=== PATIENT | female | born 1970 | race Caucasian/White ===

== ENCOUNTER 2024-06-03 15:26 | Emergency (ER) | payer SELFPAY ==
[~2024-06-03] VITALS: Ht 162.6 cm; Wt 72.0 kg
[2024-06-03 15:37] VITALS: TEMP 98.7; O2SAT 99
[2024-06-03 17:28] LABS: COLOR URINE BLOODY (YELLOW); SPECIFIC GRAVITY URINE 1.015 (1.005-1.030)
[2024-06-03 17:29] LABS: GLUCOSE URINE NEGATIVE (NEGATIVE); KETONES URINE NEGATIVE (NEGATIVE); LEUKOCYTE ESTERASE URINE NEGATIVE (NEGATIVE); NITRITE URINE NEGATIVE (NEGATIVE); OCCULT BLOOD URINE 2+ (NEGATIVE); PROTEIN URINE 1+ (NEGATIVE)
[2024-06-03 17:30] LABS: CLARITY URINE HAZY (CLEAR)
[2024-06-03 17:34] LABS: RBC URINE TNTC /hpf (0-2); SQUAMOUS EPITHELIAL CELL URINE FEW /lpf (RARE/1+)
[2024-06-03 17:35] LABS: BACTERIA URINE 3+
[2024-06-03 17:36] LABS: WBC URINE 15-25 /hpf (0-2)
[2024-06-03 17:56] LABS: BASOPHILS % 0.5 % (0.0-2.0); EOSINOPHILS % 0.8 % (0.0-5.0); HEMATOCRIT. 44.6 % (36.0-48.0); HEMOGLOBIN. 14.7 g/dL (12.0-16.0); LYMPHOCYTES % 27.1 % (20.0-50.0); MEAN CORPUSCULAR HEMOGLOBIN 29.8 pg (28.0-32.0); MEAN CORPUSCULAR VOLUME 90.2 fL (81.0-99.0); MEAN PLATELET VOLUME 8.6 fl (7.4-10.4); MONOCYTES % 8.1 % (2.0-8.0); NEUTROPHILS % 63.5 % (40.0-76.0); PLATELET 331 x1000/uL (130-400); RED BLOOD CELL COUNT 4.94 mill/uL (4.2-5.4); RED CELL DISTRIBUTION WIDTH 13.6 % (11.6-14.6); WHITE BLOOD COUNT 14.3 x1000/uL (4.5-11.0)
[2024-06-03 18:05] LABS: CHLORIDE 105 mEq/L (98-107); POTASSIUM 4.6 mEq/L (3.5-5.1); SODIUM 138 mEq/L (136-145)
[2024-06-03 18:06] LABS: CALCIUM 9.8 mg/dL (8.7-10.4); CARBON DIOXIDE 28 mEq/L (21-32)
[2024-06-03 18:11] LABS: CREATININE 0.7 mg/dL (0.6-1.0); GLUCOSE 94 mg/dL (70-105); UREA NITROGEN BLOOD 12 mg/dL (9-23)
[2024-06-03] MEDS ORDERED: CEPH500C2 MT (18:31)
[2024-06-03] MEDS: KETOROLAC 30MG/ML VIAL IM ONE (19:33)
[2024-06-03] MEDS: CEPHALEXIN 250MG CAPSULE PO ONE (19:37)
[2024-06-03] MEDS: CEPHALEXIN 250MG CAPSULE PO NR (19:40)
[2024-06-03 19:42] VITALS: BP 140/78; PULSE 88; RESP 20; O2SAT 98
== END 2024-06-03 19:42 | disposition home or self-care (01) ==
LOC: ER 15:26
DX: N39.0 Urinary tract infection, site not specified (principal)
CPT/HCPCS: 80048; 81003; 85025; 87086; 36415; 74176; 96372; 99285; J1885; Z7610 ×2